=== PATIENT | female | born 1985 | race Caucasian/White ===

== ENCOUNTER 2017-04-18 09:44 | Inpatient (IN) | payer OTHER ==
[~2017-04-18] VITALS: Ht 165.1 cm; Wt 77.3 kg
[2017-04-18 10:00] VITALS: BP 142/89
[2017-04-18] MEDS ORDERED: OXYTOCIN 30U/ 0.9% NaCL 500ML 500 ML IV ONE (10:18)
[2017-04-18] MEDS ORDERED: D5%-LACTATED RINGERS 1,000 ML IV SCH (10:18)
[2017-04-18] MEDS ORDERED: OXYTOCIN 30U/ 0.9% NaCL 500ML 500 ML IV PRN (10:18)
[2017-04-18] MEDS ORDERED: PLEASE ENTER HEIGHT AND WEIGHT MC SCH (10:30)
[2017-04-18] MEDS ORDERED: LACTATED RINGERS 1,000 ML INTUTE SCH (10:30)
[2017-04-18] MEDS ORDERED: FENTANYL PF 100 MCG/2ML IVPush PRN (10:30)
[2017-04-18] MEDS ORDERED: CALCIUM CARBONATE 500 MG TAB.CHEW PO PRN ×2 (10:30→23:00)
[2017-04-18] MEDS ORDERED: ONDANSETRON 2MG/ML, 2ML IVPush PRN (10:30)
[2017-04-18] MEDS ORDERED: OXYTOCIN 30U/ 0.9% NaCL 500ML 500 ML ONE ×2 (11:05→23:07)
[2017-04-18] MEDS ORDERED: LIDOCAINE 1%, 20ML ONE (11:05)
[2017-04-18] MEDS ORDERED: MISOPROSTOL 200 MCG TABLET ONE (11:05)
[2017-04-18] MEDS ORDERED: NEWBORN KIT ONE (11:05)
[2017-04-18] MEDS: LACTATED RINGERS 1,000 ML IV SCH ×2 (11:09→15:47)
[2017-04-18] MEDS ORDERED: PREN1TAB25 PO (13:41)
[2017-04-18] MEDS ORDERED: ACYC-114 PO (13:41)
[2017-04-18] MEDS ORDERED: FENTANYL/BUPIV./NS/PF 250 ML EPIDCONT ONE (15:33)
[2017-04-18] MEDS ORDERED: FENTANYL/BUPIV./NS/PF 250 ML EPIDCONT SCH (16:11)
[2017-04-18] MEDS ORDERED: LACTATED RINGERS 1,000 ML IV SCH (16:11)
[2017-04-18] MEDS ORDERED: NALOXONE 0.4 MG/ML, 1ML IVPush PRN (16:30)
[2017-04-18] MEDS ORDERED: EPHEDRINE 50 MG/ML, 1ML IVPush PRN (16:30)
[2017-04-18] MEDS ORDERED: LACTATED RINGERS 1,000 ML IVBOLUS PRN (16:30)
[2017-04-18] MEDS ORDERED: OXYTOCIN 30U/ 0.9% NaCL 500ML 500 ML IV SCH (22:47)
[2017-04-18] MEDS ORDERED: CARBOPROST TROMETHAMINE 250 MCG/ML, 1ML IM PRN (23:00)
[2017-04-18] MEDS ORDERED: ONDANSETRON 2MG/ML, 2ML IV PRN (23:00)
[2017-04-18] MEDS ORDERED: MISOPROSTOL 200 MCG TABLET PR PRN (23:00)
[2017-04-18] MEDS ORDERED: HYDROcodone/APAP 5/325 TABLET PO PRN ×2 (23:00)
[2017-04-18] MEDS ORDERED: METHYLERGONOVINE 0.2 MG/ML IM PRN (23:00)
[2017-04-18] MEDS ORDERED: DOCUSATE 100 MG CAPSULE PO PRN (23:00)
[2017-04-18] MEDS ORDERED: ACETAMINOPHEN 325 MG TABLET PO PRN (23:00)
[2017-04-19] MEDS: IBUPROFEN 600 MG TABLET PO PRN ×2 (13:20→19:30)
[2017-04-19] MEDS: PRENATAL VIT/IRON/FA 1 EACH TABLET PO SCH (13:20)
[2017-04-19] MEDS ORDERED: DIPH,PERTUSS(ACELL),TET VAC/PF NC IM-VACC ONE (17:10)
[2017-04-20] MEDS: IBUPROFEN 600 MG TABLET PO PRN (06:25)
[2017-04-20] MEDS: PRENATAL VIT/IRON/FA 1 EACH TABLET PO SCH (09:10)
== END 2017-04-20 11:44 | disposition home or self-care (01) | DRG 775 ==
LOC: LDOP 09:44 → LDIP 10:30 → 2NW 04-19 01:15 → DCLOUNGE 04-20 11:44
PROVIDERS: ADMIT Obstetrics & Gynecology; ATTEND Obstetrics & Gynecology
PROC: 10E0XZZ Delivery of Products of Conception, External Approach (ICD-10-PCS; principal; 2017-04-18)
PROC: 3E0E7GC Introduction of Other Therapeutic Substance into Products of Conception, Via Natural or Artificial Opening (ICD-10-PCS; 2017-04-18)
PROC: 00HU33Z Insertion of Infusion Device into Spinal Canal, Percutaneous Approach (ICD-10-PCS; 2017-04-18)
PROC: 3E0R3CZ (ICD-10-PCS; 2017-04-18)
DX: O77.0 Labor and delivery complicated by meconium in amniotic fluid (principal); Z37.0 Single live birth; Z3A.40 40 weeks gestation of pregnancy; Z23 Encounter for immunization
CPT/HCPCS: 36415; 85025; 86850; 86900; J2590; J3010; J7120